=== PATIENT | male | born 1970 | race Caucasian/White ===

== ENCOUNTER 2018-02-08 22:35 | Inpatient (IN) | payer OTHER ==
[~2018-02-08] VITALS: Ht 188 cm; Wt 127.0 kg
[~2018-02-08 22:35] MED LIST: BUPR100CR PO; LOSA50TA PO; METF1000 PO; PROP80TA PO; ZIAG300T3 PO
[2018-02-08 23:12] VITALS: BP 140/83; PULSE 86; RESP 19; TEMP 98.7; O2SAT 97
[2018-02-08 23:35] VITALS: O2SAT 97
--- NOTE | 2018-02-08 23:56 | HHI.HP ---
HPI Service Critical Care Medicine Primary Care Physician Unknown Admission Diagnosis Diagnosis: Travel History International Travel<30 Days: No Contact w/Intl Traveler <30 Da: No Traveled to Known Affected Are: No History of Present Illness 47-year-old male with medical history of hypertension on RAJANI inhibitor and beta loraine, he started taking supplement Tumeric yesterday. He presents today complaining of having tongue swelling that started earlier today. Patient denies any urticaria, shortness of breath, wheezing. Patient is having difficulty speaking secondary to the size/volume of his tongue. Patient has no drooling. Patient has no history of significant allergic reactions similar to this, has no history of angioedema no family history of angioedema to his knowledge. Review of Systems Constitutional: DENIES: Diaphoretic episodes, Fatigue, Fever, Weight gain, Weight loss, Chills, Dizziness, Change in appetite, Night Sweats Endocrine: DENIES: Heat/cold intolerance, Polydipsia, Polyuria, Polyphagia Eyes: DENIES: Blurred vision, Diplopia, Eye inflammation, Eye pain, Vision loss , Photosensitivity, Double Vision Ears, nose, mouth, throat: DENIES: Tinnitus, Hearing loss, Vertigo, Nasal discharge, Oral lesions, Throat pain, Hoarseness, Ear Pain, Running Nose, Epistaxis, Sinus Pain, Toothache, Odynophagia Respiratory: DENIES: Apneas, Cough, Snoring, Wheezing, Hemoptysis, Sputum production, Shortness of breath Cardiovascular: DENIES: Chest pain, Palpitations, Syncope, Dyspnea on Exertion , PND, Lower Extremity Edema, Orthopnea, Claudication Gastrointestinal: DENIES: Abdominal pain, Black stools, Bloody stools, Constipation, Diarrhea, Nausea, Vomiting, Difficulty Swallowing, Anorexia Genitourinary: DENIES: Sexual dysfunction, Urinary frequency, Urinary incontinence, Urgency, Hematuria, Dysuria, Nocturia, Penile Discharge, Testicular Pain, Testicular Swelling Musculoskeletal: DENIES: Joint pain, Muscle aches, Stiffness, Joint Swelling, Back pain, Neck pain Integumentary: DENIES: Abnormal pigmentation, Nail changes, Pruritus, Rash Hematologic/lymphatic: DENIES: Bruising, Lymphadenopathy Immunologic/allergic: DENIES: Eczema, Urticaria Neurologic: DENIES: Abnormal gait, Headache, Localized weakness, Paresthesias, Seizures, Speech Problems, Tremor, Poor Balance Psychiatric: DENIES: Anxiety, Confusion, Mood changes, Depression, Hallucinations, Agitation, Suicidal Ideation, Homicidal Ideation, Delusions Past Family Social History Allergies: Coded Allergies: losartan (Verified Adverse Reaction, Severe, Swelling of tongue and face, 02/08/18) Uncoded Allergies: feldine (Allergy, Intermediate, 02/08/18) Past Medical History Diabetes mellitus Hypertension Depressions Past Surgical History No related significant past surgical history Reported Medications Reported Meds & Active Scripts Active Reported Metformin (Metformin HCl) 1,000 Mg Tab 1,000 Mg PO DAILY With a meal Ziagen (Abacavir Sulfate) 300 Mg Tab 300 Mg PO DAILY Hazardous agent; use appropriate precautions for handling & disposal. Wellbutrin SR 12 HR (Bupropion HCl) 100 Mg Tab 100 Mg PO Q12HR Propranolol (Propranolol HCl) 80 Mg Tab 80 Mg PO Q12HR Active Ordered Medications Current Medications Medications (Trade) Dose Ordered Sig/Azeb Route PRN Reason Start Time Stop Time Status Last Admin Dose Admin Abacavir Sulfate (Ziagen) 300 mg DAILY PO 02/09/18 09:00 Bupropion HCl (Wellbutrin Sr 12 Hr) 100 mg Q12HR PO 02/09/18 09:00 Propranolol HCl (Inderal) 80 mg Q12HR PO 02/09/18 09:00 Sodium Chloride 1,000 ml @ 84 mls/hr [id number] IV 02/09/18 00:00 02/09/18 00:42 Sodium Chloride (NS Flush) 2 ml UNSCH PRN IV FLUSH FLUSH AFTER USING IV ACCESS 02/09/18 00:00 Sodium Chloride (NS Flush) 2 ml BID IV FLUSH 02/09/18 09:00 Acetaminophen (Tylenol) 650 mg Q6H PRN PO PAIN 1-10 AND/OR FEVER >101F 02/09/18 00:00 Famotidine (Pepcid Inj) 20 mg Q12HR IV PUSH 02/09/18 09:00 Ondansetron HCl (Zofran Inj) 4 mg Q6H PRN IV PUSH NAUSEA OR VOMITING 02/09/18 00:00 Temazepam (Restoril) 15 mg HS PRN PO INSOMNIA 02/09/18 00:00 Albuterol/ Ipratropium (Duoneb Neb) 1 ampule Q2HR NEB PRN INH WHEEZING 02/09/18 00:00 Heparin Sodium (Porcine) (Heparin Inj) 5,000 units Q8H SQ 02/09/18 00:00 02/09/18 00:43 Miscellaneous Information 1 [id number] XX 02/09/18 00:00 Chlorhexidine Gluconate (Chlorhexidine 2% Cloth) 3 pack Taper DAILY@04 TOP 02/09/18 04:00 02/05/19 03:59 02/09/18 00:43 Chlorhexidine Gluconate (Chlorhexidine 2% Cloth) 3 pack UNSCH PRN TOP HYGIENIC CARE 02/09/18 00:00 Senna/Docusate Sodium (Gabi-Colace) 1 tab BID PO 02/09/18 09:00 Magnesium Hydroxide (Milk Of Magnesia Liq) 30 ml Q12H PRN PO Mild constipation 02/09/18 00:00 Sennosides (Senokot) 17.2 mg Q12H PRN PO Moderate constipation 02/09/18 00:00 Bisacodyl (Dulcolax Supp) 10 mg DAILY PRN RECTAL SEVERE CONSITIPATION/ IF NPO 02/09/18 00:00 Lactulose (Lactulose Liq) 30 ml DAILY PRN PO SEVERE CONSITIPATION/ IF PO 02/09/18 00:00 Diphenhydramine HCl (Benadryl Inj) 25 mg Q4H IM 02/09/18 00:15 02/09/18 00:43 Dexamethasone Sodium Phosphate (Decadron Inj) 8 mg DAILY IV PUSH 02/09/18 09:00 02/11/18 09:01 Dextrose (D50w (Vial) Inj) 50 ml UNSCH PRN IV PUSH HYPOGLYCEMIA-SEE COMMENTS 02/09/18 00:15 Glucagon (Glucagon Inj) 1 mg UNSCH PRN OTHER HYPOGLYCEMIA-SEE COMMENTS 02/09/18 00:15 Insulin Aspart (NovoLOG SUPPLEMENTAL SCALE) 1 ACHS SLIDING SCALE SQ 02/09/18 08:00 Family History No family history significant for coronary artery disease or malignancy Social History Denies tobacco, alcohol, or illicit drug abuse Physical Exam Vital Signs Vital Signs Date Time Temp Pulse Resp B/P (MAP) Pulse Ox O2 Delivery O2 Flow Rate FiO2 02/08/18 23:12 98.7 86 19 140/83 (102) 97 Physical Exam GENERAL: Well-nourished, well-developed patient. SKIN: Warm and dry. HEAD: Normocephalic. EYES: No scleral icterus. No injection or drainage. NECK: Supple, trachea midline. No JVD or lymphadenopathy. CARDIOVASCULAR: Regular rate and rhythm without murmurs, gallops, or rubs. RESPIRATORY: Breath sounds equal bilaterally. No accessory muscle use. GASTROINTESTINAL: Abdomen soft, non-tender, nondistended. MUSCULOSKELETAL: No cyanosis, or edema. BACK: Nontender without obvious deformity. NEURO EXAM: GCS: 15 Mental Status: The patient is alert and oriented to person, place, and time with normal speech. Cranial Nerves: Visual acuity intact bilaterally. Visual sharp normal in all quadrants. Pupils are round, reactive to light. Extraocular movements are intact without ptosis. Hearing is normal bilaterally. Voice is normal. Tongue protrudes midline and moves symmetrically. Reflexes: Biceps, patellar, and Achilles are 2/4 bilaterally. No clonus. Sensation: Sensation is intact bilaterally to pain and light touch. Two-point discrimination is intact. Motor: Good muscle tone. Strength is 5/5 bilaterally. Cerebellar: [id number]-[id number]-radd and nwsf-mw-dwon test normal bilaterally. Caprini VTE Risk Assessment Caprini VTE Risk Assessment: Mod/High Risk (score >= 2) Caprini Risk Assessment Model Point Value = 1 Point Value = 2 Point Value = 3 Point Value = 5 Age 41-60 Minor surgery BMI > 25 kg/m2 Swollen legs Varicose veins or History of unexplained or recurrent spontaneous Oral contraceptives or hormone replacement Sepsis (< 1 month) Serious lung disease, including pneumonia (< 1 month) Abnormal pulmonary function Acute myocardial infarction Congestive heart failure (< 1 month) History of inflammatory bowel disease Medical patient at bed rest Age 61-74 Arthroscopic surgery Major open surgery (> 45 min) Laparoscopic surgery (> 45 min) Malignancy Confined to bed (> 72 hours) Immobilizing plaster cast Central venous access Age >= 75 History of VTE Family history of VTE Factor V Leiden Prothrombin [id number] Lupus anticoagulant Anticardiolipin antibodies Elevated serum homocysteine Heparin-induced thrombocytopenia Other congenital or acquired thrombophilia Stroke (< 1 month) Elective arthroplasty Hip, pelvis, or leg fracture Acute spinal cord injury (< 1 month) Prophylaxis Regimen Total Risk Factor Score Risk Level Prophylaxis Regimen 0-1 Low Early ambulation 2 Moderate Order ONE of the following: *Sequential Compression Device (SCD) *Heparin 5000 units SQ BID 3-4 Higher Order ONE of the following medications: *Heparin 5000 units SQ TID *Enoxaparin/Lovenox 40 mg SQ daily (WT < 150 kg, CrCl > 30 mL/min) *Enoxaparin/Lovenox 30 mg SQ daily (WT < 150 kg, CrCl > 10-29 mL/min) *Enoxaparin/Lovenox 30 mg SQ BID (WT < 150 kg, CrCl > 30 mL/min) AND/OR *Sequential Compression Device (SCD) 5 or more Highest Order ONE of the following medications: *Heparin 5000 units SQ TID (Preferred with Epidurals) *Enoxaparin/Lovenox 40 mg SQ daily (WT < 150 kg, CrCl > 30 mL/min) *Enoxaparin/Lovenox 30 mg SQ daily (WT < 150 kg, CrCl > 10-29 mL/min) *Enoxaparin/Lovenox 30 mg SQ BID (WT < 150 kg, CrCl > 30 mL/min) AND *Sequential Compression Device (SCD) Assessment and Plan Assessment and Plan Angioedema - DC RAJANI inhibitor - IV steroids H1 H2 antagonist - Received FFP's in a delta on the ER - Symptoms improving Hypertension - Continue propranolol - Hydralazine when necessary to keep SBP less than 160 - DC RAJANI inhibitor Diabetes mellitus - Hold metformin while in the ICU - Insulin sliding scale Depression - Home dose of Wellbutrin DVT GI prophylaxis - Teds SCDs - Subcutaneous heparin - Early aggressive mobilization - Pepcid Critical Care: The total critical care time was 35 minutes. Time to perform other separately billable procedures was not included in the critical care time. Corbin Chowdhury MD Feb 08, 2018 11:56 pm
[2018-02-09] VITALS (14 sets, daily range): BP systolic 116–155; BP diastolic 67–93; PULSE 78–95; RESP 17–29; TEMP 97.7–98.7; O2SAT 92–98
[2018-02-09] MEDS ORDERED: SENNOSIDES 8.6 MG TAB PO PRN
[2018-02-09] MEDS ORDERED: SODIUM CHLOR 0.9% 1000 ML INJ 1,000 ML IV SCH
[2018-02-09] MEDS ORDERED: SODIUM CHLORIDE 0.9% FLUSH 10 ML FLUSH IV FLUSH PRN
[2018-02-09] MEDS ORDERED: LACTULOSE SYRUP 20 GM/30 ML CUP PO PRN
[2018-02-09] MEDS ORDERED: MAGNESIUM HYDROXIDE SUSP 30 ML CUP PO PRN
[2018-02-09] MEDS ORDERED: BISACODYL 10 MG SUPP RECTAL PRN
[2018-02-09] MEDS ORDERED: RESP: ALBUTEROL 2.5 MG/IPRATROPIUM 0.5 MG NEB (PRN) INH
[2018-02-09] MEDS ORDERED: TEMAZEPAM 15 MG CAP PO PRN
[2018-02-09] MEDS ORDERED: ACETAMINOPHEN 325 MG TAB PO PRN
[2018-02-09] MEDS ORDERED: ONDANSETRON HCL 4 MG/2 ML VIAL IV PUSH PRN
[2018-02-09] MEDS ORDERED: MISCELLANEOUS NURSING INFORMATION XX SCH
[2018-02-09] MEDS ORDERED: CHLORHEXIDINE GLUCONATE 2 % 1 PACK (2 CLOTHS) TOP PRN
[2018-02-09] MEDS ORDERED: GLUCAGON 1 MG/ML VIAL OTHER PRN (00:15)
[2018-02-09] MEDS ORDERED: DEXTROSE 50% IN WATER 50 ML VIAL(D50) IV PUSH PRN (00:15)
[2018-02-09] MEDS: diphenhydrAMINE HCL 50 MG/ML VIAL IM SCH ×5 (00:43→16:54)
[2018-02-09] MEDS: HEPARIN SODIUM - SQ 10,000 UNITS/ML VIAL SQ SCH ×2 (00:43→08:44)
[2018-02-09] MEDS ORDERED: CHLORHEXIDINE GLUCONATE 2 % 1 PACK (2 CLOTHS) TOP SCH (04:00)
[2018-02-09 05:38] LABS: HEMATOCRIT 40.4 % (39.0-51.0); HEMOGLOBIN 13.7 GM/DL (13.0-17.0); MEAN CELL VOLUME 85.5 FL (80.0-100.0); MEAN CORPUSCULAR HEMOGLOBIN 28.9 PG (27.0-34.0); MEAN CORPUSCULAR HGB CONC 33.8 % (32.0-36.0); MEAN PLATELET VOLUME 7.9 FL (7.0-11.0); PLATELET COUNT 297 TH/MM3 (150-450); RED BLOOD COUNT 4.72 MIL/MM3 (4.50-5.90); RED CELL DISTRIBUTION WIDTH 13.8 % (11.6-17.2); WHITE BLOOD COUNT 10.7 TH/MM3 (4.0-11.0)
[2018-02-09 06:07] LABS: ALBUMIN 3.7 GM/DL (3.4-5.0); AST (GOT) 45 U/L (15-37); BLOOD UREA NITROGEN 15 MG/DL (7-18); CALCIUM 9.2 MG/DL (8.5-10.1); CHLORIDE 103 MEQ/L (98-107); CREATININE 1.08 MG/DL (0.60-1.30); GLOMERULAR FILTRATION RATE 73 ML/MIN (>89); GLUCOSE,RANDOM 159 MG/DL (74-106); MAGNESIUM 1.8 MG/DL (1.5-2.5); SODIUM (NA) 138 MEQ/L (136-145)
[2018-02-09 06:12] LABS: ALKALINE PHOSPHATASE 48 U/L (45-117); ALT (GPT) 78 U/L (12-78); PHOSPHORUS 2.4 MG/DL (2.5-4.9); TOTAL BILIRUBIN ADULT 0.5 MG/DL (0.2-1.0); TOTAL PROTEIN 7.4 GM/DL (6.4-8.2)
[2018-02-09] MEDS: INSULIN ASPART SUPPLEMENTAL SCALE SQ SCH ×2 (08:00→12:07)
[2018-02-09] MEDS ORDERED: ABACAVIR SULFATE 300 MG TAB PO SCH (09:00)
[2018-02-09] MEDS ORDERED: DEXAMETHASONE SOD PHOS 4 MG/ML VIAL IV PUSH SCH (09:00)
[2018-02-09] MEDS ORDERED: FAMOTIDINE 20 MG/2 ML VIAL IV PUSH SCH (09:00)
[2018-02-09] MEDS ORDERED: SODIUM CHLORIDE 0.9% FLUSH 10 ML FLUSH IV FLUSH SCH (09:00)
[2018-02-09] MEDS ORDERED: buPROPion HCL 100 MG SUSTAINED RELEASE TAB PO SCH (09:00)
[2018-02-09] MEDS ORDERED: DOCUSATE SODIUM 50 MG/SENNA 8.6 MG TAB PO SCH (09:00)
[2018-02-09] MEDS ORDERED: PROPRANOLOL HCL 80 MG TAB PO SCH (09:00)
--- NOTE | 2018-02-09 09:36 | HHI.PR ---
Subjective Remarks Patient reports feeling much better, no longer has edema able to tolerate diet and manage secretions denies SOB Objective Vitals Vital Signs Date Time Temp Pulse Resp B/P (MAP) Pulse Ox O2 Delivery O2 Flow Rate FiO2 02/09/18 06:00 82 02/09/18 04:00 98.5 84 18 133/84 (100) 98 02/09/18 04:00 84 02/09/18 02:00 88 02/09/18 00:00 98.5 87 20 130/81 (97) 96 02/09/18 00:00 87 02/08/18 23:35 97 Nasal Cannula 2.00 02/08/18 23:12 98.7 86 19 140/83 (102) 97 Result Diagram: 02/09/18 0345 02/09/18 0345 Other Results Laboratory Tests Test 02/08/18 23:00 02/09/18 03:45 Nasal Screen MRSA (PCR) MRSA NOT DETECTED White Blood Count 10.7 TH/MM3 Red Blood Count 4.72 MIL/MM3 Hemoglobin 13.7 GM/DL Hematocrit 40.4 % Mean Corpuscular Volume 85.5 FL Mean Corpuscular Hemoglobin 28.9 PG Mean Corpuscular Hemoglobin Concent 33.8 % Red Cell Distribution Width 13.8 % Platelet Count 297 TH/MM3 Mean Platelet Volume 7.9 FL Blood Urea Nitrogen 15 MG/DL Creatinine 1.08 MG/DL Random Glucose 159 MG/DL Total Protein 7.4 GM/DL Albumin 3.7 GM/DL Calcium Level 9.2 MG/DL Phosphorus Level 2.4 MG/DL Magnesium Level 1.8 MG/DL Alkaline Phosphatase 48 U/L Aspartate Amino Transf (AST/SGOT) 45 U/L Alanine Aminotransferase (ALT/SGPT) 78 U/L Total Bilirubin 0.5 MG/DL Sodium Level 138 MEQ/L Potassium Level 3.9 MEQ/L Chloride Level 103 MEQ/L Carbon Dioxide Level 26.0 MEQ/L Anion Gap 9 MEQ/L Estimat Glomerular Filtration Rate 73 ML/MIN Objective Remarks GENERAL: This is an obese, well-developed patient, in no apparent distress. CARDIOVASCULAR: Regular rate and rhythm RESPIRATORY: Clear to auscultation. Breath sounds equal bilaterally. GASTROINTESTINAL: Abdomen soft, non-tender, nondistended. Normal active bowel sounds MUSCULOSKELETAL: Extremities without clubbing, cyanosis, or edema. NEURO: Alert & Oriented x4 to person, place, time, situation. Moves all ext x4 A/P Problem List: (1) Angio-edema ICD Codes: T78.3XXA - Angioneurotic edema, initial encounter Plan: Angioedema - DC RAJANI inhibitor - initially on IV steroids H1 H2 antagonist - edema resolved - continue to monitor patient till 5 pm if no evidence of edema plan to DC Hypertension - Continue propranolol - DC RAJANI inhibitor - start Norvasc 5 mg PO daily Diabetes mellitus - resume metformin - Insulin sliding scale Depression - continue home dose of Wellbutrin DVT GI prophylaxis - Teds SCDs - Subcutaneous heparin - Early aggressive mobilization - Pepcid Assessment and Plan Patient examined. Assessment and plan formulated with Chacha Nunes PA-C. I agree with the above. Chacha Nunes Feb 09, 2018 09:36 Trae Concepcion DO Feb 14, 2018 13:47
[2018-02-09] MEDS ORDERED: AMLO5 PO (10:03)
--- NOTE | 2018-02-09 10:14 | HHI.DS ---
Discharge Summary Admission Date Feb 08, 2018 at 22:45 Discharge Date: Feb 09, 2018 Admitting Diagnosis (1) Angio-edema ICD Codes: T78.3XXA - Angioneurotic edema, initial encounter Consultants Dr. Chwodhury, ICU Procedures none Brief History 47-year-old male with medical history of hypertension on RAJANI inhibitor and beta loraine, he started taking supplement Tumeric yesterday. He presents today complaining of having tongue swelling that started earlier today. Patient denies any urticaria, shortness of breath, wheezing. Patient is having difficulty speaking secondary to the size/volume of his tongue. Patient has no drooling. Patient has no history of significant allergic reactions similar to this, has no history of angioedema no family history of angioedema to his knowledge. CBC/BMP: 02/09/18 0345 02/09/18 0345 Significant Findings Laboratory Tests Test 02/08/18 23:00 02/09/18 03:45 Random Glucose 159 MG/DL (74-106) Phosphorus Level 2.4 MG/DL (2.5-4.9) Aspartate Amino Transf (AST/SGOT) 45 U/L (15-37) Estimat Glomerular Filtration Rate 73 ML/MIN (>89) PE at Discharge GENERAL: This is an obese, well-developed patient, in no apparent distress. CARDIOVASCULAR: Regular rate and rhythm RESPIRATORY: Clear to auscultation. Breath sounds equal bilaterally. GASTROINTESTINAL: Abdomen soft, non-tender, nondistended. Normal active bowel sounds MUSCULOSKELETAL: Extremities without clubbing, cyanosis, or edema. NEURO: Alert & Oriented x4 to person, place, time, situation. Moves all ext x4 Hospital Course Angioedema - DC RAJANI inhibitor - initially on IV steroids H1 H2 antagonist - edema resolved Hypertension - Continue propranolol - DC RAJANI inhibitor - start Norvasc 5 mg PO daily Diabetes mellitus - resume metformin - Insulin sliding scale Depression - continue home dose of Wellbutrin DVT GI prophylaxis - Teds SCDs - Subcutaneous heparin - Early aggressive mobilization - Pepcid Pt Condition on Discharge: Stable Discharge Disposition: Discharge Home Discharge Instructions DIET: Follow Instructions for: Heart Healthy Diet Activities you can perform: Regular-No Restrictions Follow up Referrals: PCP Follow-up - [address] Lopez New Medications: Amlodipine (Norvasc) 5 Mg Tab 5 MG PO DAILY for Blood Pressure Management, #30 TAB 0 Refills Continued Medications: Abacavir (Ziagen) 300 Mg Tab 300 MG PO DAILY for Mgmt Viral Infection, #30 TAB 0 Refills Hazardous agent; use appropriate precautions for handling & disposal. Bupropion HCl ER 12 HR (Wellbutrin SR 12 HR) 100 Mg Tab 100 MG PO Q12HR for Control Depression, TAB 0 Refills Metformin (Metformin) 1,000 Mg Tab 1000 MG PO DAILY for Blood Sugar Management, #30 TAB 0 Refills With a meal Propranolol (Propranolol) 80 Mg Tab 80 MG PO Q12HR, #60 TAB 0 Refills Additional Information Patient examined. Assessment and plan formulated with Chacha Nunes PA-C. I agree with the above. Chacha Nunes Feb 09, 2018 10:14 Trae Concepcion DO Feb 14, 2018 13:48
[2018-02-09] MEDS ORDERED: metFORMIN HCL 500 MG TAB PO SCH (10:15)
[2018-02-09] MEDS ORDERED: amLODIPine BESYLATE 5 MG TAB PO ONE (10:15)
[2018-02-10] MEDS ORDERED: amLODIPine BESYLATE 5 MG TAB PO SCH (09:00)
== END 2018-02-09 17:15 | disposition home or self-care (01) | DRG 916 ==
LOC: NEDDLT 22:35 → HIMW 22:45
PROVIDERS: ADMIT Internal Medicine Critical Care Medicine; ATTEND Internal Medicine Critical Care Medicine
DX: T78.3XXA Angioneurotic edema, initial encounter (principal); I10 Essential (primary) hypertension; E11.9 Type 2 diabetes mellitus without complications; F32.9 Major depressive disorder, single episode, unspecified; Z79.84 Long term (current) use of oral hypoglycemic drugs
CPT/HCPCS: 36430; 70450; 71045; 80048; 80053; 82550; 83735; 84100; 84484; 85007; 85027; 85610; 85730; 86927; 87641; 93005; 96372; 96374; 96375; 96376; J0171; J1100; J1200; J1644; J1815; J2270; J7030; J7050; P9017

== ENCOUNTER 2018-04-04 14:06 | Emergency (ER) | payer OTHER ==
[~2018-04-04] VITALS: Ht 188 cm; Wt 122.0 kg
[~2018-04-04 14:06] MED LIST changes: +AMLO5 PO; -LOSA50TA PO
[2018-04-04 14:09] VITALS: BP 174/95; TEMP 98.5
[2018-04-04 14:11] VITALS: BP 174/95; PULSE 70; RESP 20; TEMP 98.5
[2018-04-04] MEDS ORDERED: SODIUM CHLORIDE 0.9% FLUSH 10 ML FLUSH IV FLUSH PRN (14:15)
[2018-04-04] MEDS ORDERED: methylPREDNISolone SOD SUCC 125 MG/2 ML VIAL IM ONE (14:15)
[2018-04-04] MEDS ORDERED: FAMOTIDINE 20 MG/2 ML VIAL IV PUSH ONE (14:15)
--- NOTE | 2018-04-04 14:32 | PD ---
HPI Chief Complaint: Allergic/Adverse Reaction Time Seen by Provider: 14:12 Travel History International Travel<30 days: No Contact w/Intl Traveler<30days: No Traveled to known affect area: No History of Present Illness HPI 47-year-old male complains of tongue swelling. Patient states the symptoms started about an hour prior to arrival. Patient has history of recurrent allergic reaction. Patient was treated to the emergency room in the past. Patient was on lisinopril and that was stopped. Patient was put on losartan and that was stopped about a month ago. Patient on amlodipine and propranolol for hypertension. Patient also has history of diabetes, hyperlipidemia. Patient was seen by training mgr recently and had skin tests and blood test for allergies. Patient started having tongue swelling about an hour prior to arrival. Patient gave himself an EpiPen injection and Benadryl 2 tablets prior to arrival. Patient denies any chest pain or shortness of breath. Patient denies any new exposure. PFSH Past Medical History Arthritis: No Asthma: No Heart Rhythm Problems: No Cancer: No High Cholesterol: No Chemotherapy: No Chest Pain: No Congestive Heart Failure: No COPD: No Cerebrovascular Accident: No Diabetes: Yes (diagnosed a year ago) Patient Takes Glucophage: No Endocrine: No Gastrointestinal Disorders: Yes (colonoscopy at beginning of year, no problems) GERD: Yes Genitourinary: No Hiatal Hernia: No Hypertension: Yes Immune Disorder: No Kidney Stones: No Musculoskeletal: No Neurologic: No Psychiatric: No Reproductive: No Respiratory: No Migraines: Yes (last migraine 2 years ago) Radiation Therapy: No Renal Failure: No Seizures: No Sickle Cell Disease: No Sleep Apnea: No Thyroid Disease: No Ulcer: No Past Surgical History Abdominal Surgery: No AICD: No Arteriovenous Shunt: No Cardiac Surgery: No Ear Surgery: No Endocrine Surgery: No Eye Surgery: No Genitourinary Surgery: No Insulin Pump: No Joint Replacement: No Oral Surgery: Yes (wisdom teeth removal) Pacemaker: No Thoracic Surgery: No Other Surgery: Yes (carpel tunnel surgery on left hand) Social History Alcohol Use: No Tobacco Use: No Substance Use: No Allergies-Medications (Allergen,Severity, Reaction): Coded Allergies: losartan (Verified Adverse Reaction, Severe, Swelling of tongue and face, 02/08/18) Uncoded Allergies: feldine (Allergy, Intermediate, 02/08/18) Reported Meds & Prescriptions Reported Meds & Active Scripts Active Zantac (Ranitidine HCl) 300 Mg Tab 300 Mg PO DAILY Zyrtec (Cetirizine HCl) 10 Mg Capsule 1 Tab PO DAILY Prednisone 20 Mg Tab 20 Mg PO BID Norvasc (Amlodipine Besylate) 5 Mg Tab 5 Mg PO DAILY Reported Metformin (Metformin HCl) 1,000 Mg Tab 1,000 Mg PO DAILY With a meal Ziagen (Abacavir Sulfate) 300 Mg Tab 300 Mg PO DAILY Hazardous agent; use appropriate precautions for handling & disposal. Wellbutrin SR 12 HR (Bupropion HCl) 100 Mg Tab 100 Mg PO Q12HR Propranolol (Propranolol HCl) 80 Mg Tab 80 Mg PO Q12HR Review of Systems General / Constitutional: No: Fever Eyes: No: Visual changes HENT: No: Headaches Cardiovascular: No: Chest Pain or Discomfort Respiratory: No: Shortness of Breath Gastrointestinal: No: Abdominal Pain Genitourinary: No: Dysuria Musculoskeletal: No: Pain Skin: No Rash Neurologic: No: Weakness Psychiatric: No: Depression Endocrine: No: Polydipsia Hematologic/Lymphatic: No: Easy Bruising Physical Exam Narrative GENERAL: Well-nourished, well-developed patient. SKIN: Focused skin assessment warm/dry. HEAD: Normocephalic. EYES: No scleral icterus. No injection or drainage. Patient has marked edema of the sinus pressure in the right side of the tongue. No pharyngeal swelling noted. No stridor or wheezes. NECK: Supple, trachea midline. No JVD or lymphadenopathy. CARDIOVASCULAR: Regular rate and rhythm without murmurs, gallops, or rubs. RESPIRATORY: Breath sounds equal bilaterally. No accessory muscle use. GASTROINTESTINAL: Abdomen soft, non-tender, nondistended. MUSCULOSKELETAL: No cyanosis, or edema. BACK: Nontender without obvious deformity. No CVA tenderness. Neurologic exam normal. Data Data Last Documented VS Vital Signs Date Time Temp Pulse Resp B/P (MAP) Pulse Ox O2 Delivery O2 Flow Rate FiO2 04/04/18 14:13 100 Nasal Cannula 2.00 04/04/18 14:11 98.5 70 20 174/95 (121) Orders Orders Ecg Monitoring (04/04/18 14:12) Iv Access Insert/Monitor (04/04/18 14:12) Oximetry (04/04/18 14:12) Methylprednisolone So Succ Inj (Solumedr (04/04/18 14:15) Famotidine Inj (Pepcid Inj) (04/04/18 14:15) Sodium Chloride 0.9% Flush (Ns Flush) (04/04/18 14:15) Ed Discharge Order (04/04/18 16:08) [facility] Medical Decision Making Medical Screen Exam Complete: Yes Emergency Medical Condition: Yes Differential Diagnosis Differential diagnosis including angioedema, anaphylactic reaction. Narrative Course 47-year-old male with recurrent angioedema. Patient gave himself an EpiPen injection and Benadryl and mouth prior to arrival. Solu-Medrol 125 mg IV. Pepcid 20 mg IV. 1609 p.m. Reexamination patient is feeling better. Decrease in swelling of the tongue. Diagnosis Primary Impression: Angioedema Qualified Codes: T78.3XXA - Angioneurotic edema, initial encounter Patient Instructions: General Instructions Additional Instructions: Take medications as directed. Follow-up with personal physician and training mgr. Return if worse. Med/Other Pt SpecificInfo: Prescription(s) given Scripts Epinephrine Inj (Epipen 2-Kyle Inj) 0.3 Mg/0.3 Ml Pfpen 0.3 MG IM ONCE Y for ALLERGIC REACTION, #1 PACK 0 Refills Prov: Michael Canales MD 04/04/18 Ranitidine (Zantac) 300 Mg Tab 300 MG PO DAILY, #10 TAB 0 Refills Prov: Michael Canales MD 04/04/18 Cetirizine HCl (Zyrtec) 10 Mg Capsule 1 TAB PO DAILY, #10 Prov: Michael Canales MD 04/04/18 Prednisone (Prednisone) 20 Mg Tab 20 MG PO BID, #10 TAB 0 Refills Prov: Michael Canales MD 04/04/18 Disposition: 01 DISCHARGE HOME Condition: Stable Michael Canales MD April 04, 2018 14:32
[2018-04-04] MEDS ORDERED: ZANT300T PO (16:13)
[2018-04-04] MEDS ORDERED: CETI10CA3 PO (16:13)
[2018-04-04] MEDS ORDERED: PRED20 PO (16:13)
[2018-04-04] MEDS ORDERED: EPIP0.3I IM (16:24)
[2018-04-04 16:43] VITALS: BP 131/68
== END 2018-04-04 17:24 | disposition home or self-care (01) ==
LOC: NEPD 14:06
DX: T78.3XXA Angioneurotic edema, initial encounter (principal); E11.9 Type 2 diabetes mellitus without complications; I10 Essential (primary) hypertension; Z79.84 Long term (current) use of oral hypoglycemic drugs
CPT/HCPCS: 96372; 96374; 99284; J2930

== ENCOUNTER 2018-06-09 07:29 | Observation (INO) ==
[2018-06-09] MEDS ORDERED: Dextrose 50% in Water 50 ML Vial IV.PUSH PRN (17:47)
--- NOTE | 2018-06-09 17:50 | P.HPIM ---
History of Present Illness Service: Mr Oconnell is 47 yo with dm 2, htn, and now 4 episodes of angioedema since January of 2018., The first episode pt was given antihistamine,decadron, ffp, and observed in [place] ICU overnight then discharged. He was on both an rajani and bb at that time and it was felt the rajani was culprit. RAJANI was stopped. He had primarily tongue swelling. In March he presented to ED again and was treated and released. About a week ago pt says again in [place] the same tingling and swelling of the tongue and he was given a medrol dose pack in ED and sent home. The dosepack completed 2 days ago and this AM he awoke and shortly after noticed tongue tingling and swelling. Pt was given epi/steroids/h2 blockers and sent here for obsevation. Pt says he has been following with an Digital Measurement Advisor Dr Nicholas and testing and bloodwork has not revealed the etiology of these episodes. A c1 esterase was sent today from ED. Currently tongue tinglin and swelling improved and nearly resolved. PMH dm 2 htn angioedema carpal tunnel surgery sh no tob. rare etoh FH father had esophageal ca Primary Care Physician: Daryl Lopez MD - Diagnosis (1) Angioedema (2) Diabetes (3) HTN (hypertension) Review of Systems tongue tingling and swelling PMFSH - History History Provided By: Patient - Medical History Medical History: Medical History (Last Updated 06/09/18 @ 17:32 by Honey So RN) High cholesterol Angioedema Onset Date: ~06/01/18 Diabetes Hypertension - Surgical History Surgical History: Surgical History (Last Reviewed 06/09/18 @ 15:19 by Richar Malcolm MD) H/O carpal tunnel repair - Tobacco History Second Hand Smoke Exposure: No Smoking Status: Never smoker - Alcohol History How Often Do You Have a Drink Containing Alcohol: Never - Substance Use History Substance History: No History of Abuse - Travel History Recent Travel in the [place] Within the Last 8 Weeks: No Recent Travel Out of the Country Within the Last 8 Weeks: No Medications and Allergies Active Medications: Active Medications Amlodipine Besylate (Norvasc) 10 mg PO DAILY DAVIAN Dextrose (D50w Vial) 50 ml IV.PUSH UNSCH PRN PRN Reason: PER HYPOGLYCEMIA PROTOCOL Fenofibrate (Tricor) 145 mg PO DAILY DAVIAN Glucagon (Glucagon Inj) 1 mg OTHER PRN PRN PRN Reason: for Hypoglycemia Protocol Insulin Aspart (Novolog Insulin Correctional Sugar Inj) 0 unit SQ ACHS DAVIAN; Protocol Metformin HCl (Glucophage) 1,000 mg PO DAILY DAVIAN Methylprednisolone Sodium Succinate (Solumedrol Inj) 60 mg IV.PUSH Q6HR DAVIAN Allergies Allergy/AdvReac Type Severity Reaction Status Date / Time guaifenesin Allergy Itching Verified 06/01/18 20:04 losartan AdvReac Severe Swelling Verified 02/08/18 23:57 of tongue and face feldine Allergy Intermediate Itching Uncoded 06/01/18 20:04 Home Medications Medication Instructions Recorded Confirmed Type Norvasc 10 mg PO HS 06/01/18 06/09/18 History Wellbutrin SR 50 mg PO BID 06/01/18 06/09/18 History metformin 1,000 mg PO HS 06/01/18 06/09/18 History EpiPen IM PRN PRN 06/09/18 History fenofibrate 06/09/18 History Exam Vital signs: heart reg lung cta abd s/nt ext no edema no stridor no rash. Caprini VTE Risk Assessment Caprini VTE Risk Assessment: No/Low Risk (score <= 1) Caprini Risk Assessment Model: Point Value = 1 Point Value = 2 Point Value = 3 Point Value = 5 Age 41-60 Minor surgery BMI > 25 kg/m2 Swollen legs Varicose veins or History of unexplained or recurrent spontaneous Oral contraceptives or hormone replacement Sepsis (< 1 month) Serious lung disease, including pneumonia (< 1 month) Abnormal pulmonary function Acute myocardial infarction Congestive heart failure (< 1 month) History of inflammatory bowel disease Medical patient at bed rest Age 61-74 Arthroscopic surgery Major open surgery (> 45 min) Laparoscopic surgery (> 45 min) Malignancy Confined to bed (> 72 hours) Immobilizing plaster cast Central venous access Age >= 75 History of VTE Family history of VTE Factor V Leiden Prothrombin [id number] Lupus anticoagulant Anticardiolipin antibodies Elevated serum homocysteine Heparin-induced thrombocytopenia Other congenital or acquired thrombophilia Stroke (< 1 month) Elective arthroplasty Hip, pelvis, or leg fracture Acute spinal cord injury (< 1 month) Prophylaxis Regimen: Total Risk Factor Score Risk Level Prophylaxis Regimen 0-1 Low Early ambulation 2 Moderate Order ONE of the following: *Sequential Compression Device (SCD) *Heparin 5000 units SQ BID 3-4 Higher Order ONE of the following medications: *Heparin 5000 units SQ TID *Enoxaparin/Lovenox 40 mg SQ daily (WT < 150 kg, CrCl > 30 mL/min) *Enoxaparin/Lovenox 30 mg SQ daily (WT < 150 kg, CrCl > 10-29 mL/min) *Enoxaparin/Lovenox 30 mg SQ BID (WT < 150 kg, CrCl > 30 mL/min) AND/OR *Sequential Compression Device (SCD) 5 or more Highest Order ONE of the following medications: *Heparin 5000 units SQ TID (Preferred with Epidurals) *Enoxaparin/Lovenox 40 mg SQ daily (WT < 150 kg, CrCl > 30 mL/min) *Enoxaparin/Lovenox 30 mg SQ daily (WT < 150 kg, CrCl > 10-29 mL/min) *Enoxaparin/Lovenox 30 mg SQ BID (WT < 150 kg, CrCl > 30 mL/min) AND *Sequential Compression Device (SCD) Assessment and Plan - Assessment (1) Angioedema Code(s): T78.3XXA - Angioneurotic edema, initial encounter Status: Acute Plan: 1. angioedema. tongue tingling/swelling recurrent. This is 4rth presentation since January. Initially felt to be rajani inh related. Pt reports allergy testing with his Allergy doctor. a hereditary angioedema was questioned. f/u pending labwork. cont iv solumedrol, scheduled benadryl, prn nebs overnight. telemetry diabetic diet. oha. ssi. ambulate ad kelsey. dvt prophylaxis. If pt stable will probably dc tomorrow. resume home meds. (2) Diabetes Code(s): E11.9 - Type 2 diabetes mellitus without complications Status: Chronic (3) HTN (hypertension) Code(s): I10 - Essential (primary) hypertension Status: Chronic H&P: Quality - VTE Deep Vein Thrombosis/Pulmonary Embolism Present on Admission: No
[2018-06-09] MEDS: MethylPREDNISolone Sod Succinate Inj 125 MG/2 ML Vial IV.PUSH SCH (18:09)
[2018-06-09] MEDS: Insulin NovoLOG Aspart Correctional Sugar Inj SQ SCH (20:45)
[2018-06-09] MEDS: buPROPion 100 MG Tablet PO SCH (20:46)
[2018-06-10] MEDS: MethylPREDNISolone Sod Succinate Inj 125 MG/2 ML Vial IV.PUSH SCH ×3 (01:25→13:39)
[2018-06-10 08:17] LABS: Baso % (Auto) 0.1 % (0.0-2.0); Eos % (Auto) 0.1 % (0.0-4.0); Hematocrit 42.2 % (39.0-51.0); Hemoglobin 14.2 gm/dL (13.0-17.0); Lymph # (Auto) 1.4 th/mm3 (1.0-4.8); Lymph % (Auto) 9.2 % (9.0-44.0); Mean Corpuscular HGB Conc 33.7 % (32.0-36.0); Mean Corpuscular Hemoglobin 28.6 pg (27.0-34.0); Mean Corpuscular Volume 84.8 fL (80.0-100.0); Mean Platelet Volume 7.5 fL (7.0-11.0); Mono # (Auto) 0.3 th/mm3 (0.0-0.9); Mono % (Auto) 2.1 % (0.0-8.0); Neut # (Auto) 13.5 th/mm3 (1.8-7.7); Neut % (Auto) 88.5 % (16.0-70.0); Platelet Count 347 th/mm3 (150-450); Red Blood Count 4.98 mil/mm3 (4.50-5.90); Red Cell Distribution Width 14.4 % (11.6-17.2); White Blood Count 15.2 th/mm3 (4.0-11.0)
[2018-06-10 08:57] LABS: Calcium 9.4 mg/dL (8.5-10.1); Carbon Dioxide 25.1 meq/L (21.0-32.0)
[2018-06-10] MEDS ORDERED: amLODIPine 10 MG Tablet PO SCH (09:00)
[2018-06-10] MEDS ORDERED: Fenofibrate 145 MG Tablet PO SCH (09:00)
--- NOTE | 2018-06-10 09:13 | P.PNIM ---
Subjective Interval history: Pt is no longer having any tongue tingling or swelling He feels that his voice is somewhat hoarse Physical Exam Vital signs: Vital Signs 06/09/18 17:54 06/09/18 19:36 06/09/18 23:34 Temperature 98.1 F 98.1 F 98.7 F Pulse Rate 100 H 106 H 109 H Respiratory Rate 20 18 18 Blood Pressure 143/92 H 123/71 116/82 Pulse Oximetry 96 97 95 06/10/18 03:51 06/10/18 04:00 06/10/18 08:00 Temperature 97.6 F 98.0 F Pulse Rate 99 H 93 H 99 H Respiratory Rate 18 18 Blood Pressure 123/75 136/87 Pulse Oximetry 96 96 Intake & Output 06/09/18 06/10/18 06/10/18 18:59 06:59 18:59 Intake Total 1000 / 1000 Balance 1000 / 1000 Weight 120.6 kg Intake: Oral 1000 / 1000 Other: # Voids 1 Date of Last Bowel Movement 06/09/18 Weight On Admission 120.6 kg Narrative: General: NAD, AAOx3 Chest: CTA Cardiac: Regular Abd: +BS, soft ND/NT Ext: No edema Results - Labs CBC & Chem 7: 06/10/18 07:50 06/10/18 07:50 Laboratory Results - last 24 hr 06/09/18 06/10/18 06/10/18 20:30 07:50 07:50 WBC 15.2 H RBC 4.98 Hgb 14.2 Hct 42.2 MCV 84.8 MCH 28.6 MCHC 33.7 RDW 14.4 Plt Count 347 MPV 7.5 Neut % (Auto) 88.5 H Lymph % (Auto) 9.2 [place] % (Auto) 2.1 Eos % (Auto) 0.1 Baso % (Auto) 0.1 Neut # (Auto) 13.5 H Lymph # (Auto) 1.4 [place] # (Auto) 0.3 Eos # (Auto) 0.0 Baso # (Auto) 0.0 WBC Differential . Differential Comment Auto diff final Sodium 137 Potassium 4.0 Chloride 104 Carbon Dioxide 25.1 Anion Gap 8 BUN 16 Creatinine 0.98 Estimated GFR 81 L POC Glucose 218 H Random Glucose 159 H Calcium 9.4 06/10/18 08:40 WBC RBC Hgb Hct MCV MCH MCHC RDW Plt Count MPV Neut % (Auto) Lymph % (Auto) [place] % (Auto) Eos % (Auto) Baso % (Auto) Neut # (Auto) Lymph # (Auto) [place] # (Auto) Eos # (Auto) Baso # (Auto) WBC Differential Differential Comment Sodium Potassium Chloride Carbon Dioxide Anion Gap BUN Creatinine Estimated GFR POC Glucose 162 H Random Glucose Calcium Assessment and Plan - Assessment (1) Angioedema Code(s): T78.3XXA - Angioneurotic edema, initial encounter Status: Acute Plan: Angioedema with tongue tingling/swelling, recurrent - Pt is a 47 y/o male with HTN, GERD and Glucose intolerance, and recurrent angioedema - He presented to the ED in [place] on 06/09/18 with his 4th presentation of angioedema, with tongue swelling and tingling, since January. - After his initially presentation it was felt that the angioedema was related to his Karlos inhibitor at that time so it was stopped. But he has had several episodes since that time. - Pt reports that he is following with an paper sorter, Dr. Fonseca and is undergoing allergy testing with him. - Hereditary angioedema was questioned, C1 esterase inhibitor and Complement 4, is pending and will need to be followed up on by his paper sorter. - Patient voiced concerns about possibly Lupus causing some of these issues, we will check SUSHMA and anti-DS DNA, which will need to be followed up on by his PCP. - We will also check TSH as well. - Pt was treated with IV Solu-Medrol, scheduled Benadryl, and prn nebs overnight with clinical improvement. - No cardiac dysrhythmias noted on telemetry overnight. - Pt has returned to baseline and his tongue tingling and swelling has resolved. - We will plan for discharge to home this afternoon with a Prednisone taper, 20mg BID x 4 days --> 20mg once daily x 4 days --> 10 mg once daily x 4 days, then stop. - Pt reports that he has been unable to schedule a sleep study as an outpt as the facility he has tried to reach over in [place] has not returned his phone calls. We will provide the pt with the phone number for Dr. Kushal Fatima office to call to schedule sleep study appt. - Pt is stable for discharge to home today. - He is to followup with his Radio Despatcher, Dr. Horn, in 1-2 weeks, call for that appt. - He is to followup with his PCP at his previously scheduled appt or sooner should any problems arise. - Pt is also being given a hand written prescription for Prednisone which is to be used in an emergency situation should he have any symptoms after the printed prescription for the Prednisone taper is completed. The exam, history, and the medical decision-making described in the above note were completed with the assistance of the mid-level provider. I reviewed and agree with the findings presented. I attest that I had a [id number] encounter with the patient on the same day, and personally performed and documented my assessment and findings in the medical record. recurrent angioedema. resolved. ?etiology. ?hereditary. no obvious drug or food trigger at this pt. karlos stopped in 01/29. no nsaids. has been to paper sorter and no etiology found. limited AI panel pending. [id number] inh pending. tsh pending. prednisone taper. given emergency script for prednisone prn. pt will f/u Tuesday with his Radio Despatcher. (2) Diabetes Code(s): E11.9 - Type 2 diabetes mellitus without complications Status: Chronic (3) HTN (hypertension) Code(s): I10 - Essential (primary) hypertension Status: Chronic
[2018-06-10] MEDS: buPROPion 100 MG Tablet PO SCH (09:45)
[2018-06-10] MEDS: Insulin NovoLOG Aspart Correctional Sugar Inj SQ SCH ×2 (09:49→13:38)
[2018-06-10 10:34] LABS: Hemoglobin A1c 6.3 % (4.3-6.0)
--- NOTE | 2018-06-11 08:01 | ED ---
HPI Related Data Home Medications Medication Instructions Recorded Confirmed Norvasc 10 mg PO HS 06/01/18 06/09/18 Wellbutrin SR 150 mg PO BID 06/01/18 06/10/18 metformin 1,000 mg PO HS 06/01/18 06/09/18 EpiPen IM PRN PRN 06/09/18 pantoprazole [Protonix] 40 mg PO DAILY 06/09/18 06/10/18 fenofibrate nanocrystallized 145 mg PO DAILY 06/10/18 06/10/18 Previous Rx's Medication Instructions Recorded prednisone [Deltasone] 20 mg PO DIRECTED 13 Days #14 06/10/18 tab Allergies Allergy/AdvReac Type Severity Reaction Status Date / Time guaifenesin Allergy Itching Verified 06/01/18 20:04 losartan AdvReac Severe Swelling Verified 02/08/18 23:57 of tongue and face feldine Allergy Intermediate Itching Uncoded 06/01/18 20:04 [facility] Medical History Medical History Angioedema (Acute ~06/01/18) Diabetes (Acute) High cholesterol (Acute) Hypertension (Acute) Surgical History Surgical History H/O carpal tunnel repair (Acute) Social History Social History Substance History: No History of Abuse Second Hand Smoke Exposure: No Smoking Status: Never smoker How Often Do You Have a Drink Containing Alcohol: Never Recent Travel in [place] within the Last 8 Weeks: No Recent Out of Country Travel within the Last 8 Weeks: No Course Initial Documented Vital Signs Temperature 98.1 F 06/09/18 17:54 Pulse Rate 100 H 06/09/18 17:54 Respiratory Rate 20 06/09/18 17:54 Blood Pressure 143/92 H 06/09/18 17:54 Pulse Oximetry 96 06/09/18 17:54 Last Documented Vital Signs Temperature 98.0 F 06/10/18 08:00 Pulse Rate 88 06/10/18 08:00 Respiratory Rate 18 06/10/18 08:00 Blood Pressure 136/87 06/10/18 08:00 Pulse Oximetry 96 06/10/18 08:00 Medical Decision Making Lab Data Result diagrams: 06/10/18 07:50 06/10/18 07:50 Lab Results 06/09/18 06/10/18 06/10/18 Range/Units 20:30 07:30 07:50 WBC 15.2 H (4.0-11.0) th/mm3 RBC 4.98 (4.50-5.90) mil/mm3 Hgb 14.2 (13.0-17.0) gm/dL Hct 42.2 (39.0-51.0) % MCV 84.8 (80.0-100.0) fL MCH 28.6 (27.0-34.0) pg MCHC 33.7 (32.0-36.0) % RDW 14.4 (11.6-17.2) % Plt Count 347 (150-450) th/mm3 MPV 7.5 (7.0-11.0) fL Neut % (Auto) 88.5 H (16.0-70.0) % Lymph % (Auto) 9.2 (9.0-44.0) % [place] % (Auto) 2.1 (0.0-8.0) % Eos % (Auto) 0.1 (0.0-4.0) % Baso % (Auto) 0.1 (0.0-2.0) % Neut # (Auto) 13.5 H (1.8-7.7) th/mm3 Lymph # (Auto) 1.4 (1.0-4.8) th/mm3 [place] # (Auto) 0.3 (0.0-0.9) th/mm3 Eos # (Auto) 0.0 (0.0-0.4) th/mm3 Baso # (Auto) 0.0 (0.0-0.2) th/mm3 WBC Differential . Differential Comment Auto diff final Sodium (136-145) meq/L Potassium (3.5-5.1) meq/L Chloride (98-107) meq/L Carbon Dioxide (21.0-32.0) meq/L Anion Gap (5-15) meq/L BUN (7-18) mg/dL Creatinine (0.60-1.30) mg/dL Estimated GFR (>89) mL/min POC Glucose 218 H (68-110) mg/dl Random Glucose (74-106) mg/dL Hemoglobin A1c 6.3 H (4.3-6.0) % Calcium (8.5-10.1) mg/dL TSH (0.358-3.740) uIU/mL Complement C4 (10-40) mg/dL 06/10/18 06/10/18 06/10/18 Range/Units 07:50 07:50 07:50 WBC (4.0-11.0) th/mm3 RBC (4.50-5.90) mil/mm3 Hgb (13.0-17.0) gm/dL Hct (39.0-51.0) % MCV (80.0-100.0) fL MCH (27.0-34.0) pg MCHC (32.0-36.0) % RDW (11.6-17.2) % Plt Count (150-450) th/mm3 MPV (7.0-11.0) fL Neut % (Auto) (16.0-70.0) % Lymph % (Auto) (9.0-44.0) % [place] % (Auto) (0.0-8.0) % Eos % (Auto) (0.0-4.0) % Baso % (Auto) (0.0-2.0) % Neut # (Auto) (1.8-7.7) th/mm3 Lymph # (Auto) (1.0-4.8) th/mm3 [place] # (Auto) (0.0-0.9) th/mm3 Eos # (Auto) (0.0-0.4) th/mm3 Baso # (Auto) (0.0-0.2) th/mm3 WBC Differential Differential Comment Sodium 137 (136-145) meq/L Potassium 4.0 (3.5-5.1) meq/L Chloride 104 (98-107) meq/L Carbon Dioxide 25.1 (21.0-32.0) meq/L Anion Gap 8 (5-15) meq/L BUN 16 (7-18) mg/dL Creatinine 0.98 (0.60-1.30) mg/dL Estimated GFR 81 L (>89) mL/min POC Glucose (68-110) mg/dl Random Glucose 159 H (74-106) mg/dL Hemoglobin A1c (4.3-6.0) % Calcium 9.4 (8.5-10.1) mg/dL TSH 0.459 (0.358-3.740) uIU/mL Complement C4 34 (10-40) mg/dL 06/10/18 06/10/18 Range/Units 08:40 13:18 WBC (4.0-11.0) th/mm3 RBC (4.50-5.90) mil/mm3 Hgb (13.0-17.0) gm/dL Hct (39.0-51.0) % MCV (80.0-100.0) fL MCH (27.0-34.0) pg MCHC (32.0-36.0) % RDW (11.6-17.2) % Plt Count (150-450) th/mm3 MPV (7.0-11.0) fL Neut % (Auto) (16.0-70.0) % Lymph % (Auto) (9.0-44.0) % [place] % (Auto) (0.0-8.0) % Eos % (Auto) (0.0-4.0) % Baso % (Auto) (0.0-2.0) % Neut # (Auto) (1.8-7.7) th/mm3 Lymph # (Auto) (1.0-4.8) th/mm3 [place] # (Auto) (0.0-0.9) th/mm3 Eos # (Auto) (0.0-0.4) th/mm3 Baso # (Auto) (0.0-0.2) th/mm3 WBC Differential Differential Comment Sodium (136-145) meq/L Potassium (3.5-5.1) meq/L Chloride (98-107) meq/L Carbon Dioxide (21.0-32.0) meq/L Anion Gap (5-15) meq/L BUN (7-18) mg/dL Creatinine (0.60-1.30) mg/dL Estimated GFR (>89) mL/min POC Glucose 162 H 176 H (68-110) mg/dl Random Glucose (74-106) mg/dL Hemoglobin A1c (4.3-6.0) % Calcium (8.5-10.1) mg/dL TSH (0.358-3.740) uIU/mL Complement C4 (10-40) mg/dL Discharge Plan Discharge Condition Condition: Stable Discharge Order Discharge Orders: Discharge Order (Routine); Ordered 06/10/18 Ordered By: Renuka Sr Discharge Details Anticipated Discharge Date: 06/10/18 Discharge Comment: Followup with your manager dish, Dr. Fonseca, in 1-2 weeks, call for that appt Followup with Dr. Kushal Fatima for sleep study, call his office at Followup with your PCP at previously scheduled appt or sooner shoule any problems arise. The hand written prescription for the Prednisone is to be used in an emergency should you have any symptoms after the printed prescription for the Prednisone taper is completed. Physicians Team ED Provider: Richar Malcolm Primary Care Provider: Daryl Lopez Attending Provider: Austin Mccormack Status ED Status: Admitted Observation Patient
[2018-06-13 16:27] LABS: DNA Double Stranded Antibody Less Than 12.3 IU/mL (<30.0 (Negative))
[2018-06-15 03:51] LABS: DS DNA Ab (Crithidia) NEGATIVE (NEGATIVE)
== END 2018-06-10 16:13 | disposition home or self-care (01) ==
LOC: NEPHCDU 07:29 → NEDDLT 07:29
PROVIDERS: ADMIT Hospitalist; ATTEND Hospitalist

== ENCOUNTER 2018-08-18 13:38 | Observation (INO) ==
[2018-08-18] MEDS ORDERED: predniSONE 20 MG Tablet PO ONE (13:44)
--- NOTE | 2018-08-18 14:38 | ED ---
HPI General Chief complaint: Allergic Reaction Stated complaint: MEDICAL Time Seen by Provider: 08/18/18 13:40 History of Present Illness HPI narrative: Patient is 47-year-old male with a history of reactive angioedema presents emergency department for evaluation of mild tongue swelling on the right side of his tongue for the past hour or so. He told a coworker about it who recommended he come to the emergency department to be seen. 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 He has been given Benadryl epinephrine and steroids in the past with good response. However the patient states that when he does give epinephrine it actually causes his heart to go slower and he was told that he should have epinephrine anymore. No cough no congestion, no difficulty swallowing, no rash. Related Data Home Medications Medication Instructions Recorded Confirmed Norvasc 5 mg PO DAILY 06/01/18 08/18/18 metformin 1,000 mg PO HS 06/01/18 08/18/18 cholecalciferol (vitamin D3) 1,000 unit PO DAILY 08/18/18 08/18/18 [Vitamin D3] fexofenadine [Kecia Allergy] 180 mg PO DAILY 08/18/18 08/18/18 sertraline [Zoloft] 25 mg PO DAILY 08/18/18 08/18/18 Previous Rx's Medication Instructions Recorded prednisone 10 mg PO DIRECTED 10 Days #10 08/19/18 tab Allergies Allergy/AdvReac Type Severity Reaction Status Date / Time guaifenesin Allergy Itching Verified 08/18/18 14:03 lisinopril Allergy Anaphylaxis Verified 08/18/18 14:03 losartan AdvReac Severe Swelling Verified 08/18/18 14:03 of tongue and face feldine Allergy Intermediate Itching Uncoded 08/18/18 14:03 Review of Systems ROS: all other systems reviewed are negative [facility] Social History Social History Substance History: No History of Abuse Second Hand Smoke Exposure: No Smoking Status: Never smoker How Often Do You Have a Drink Containing Alcohol: Monthly or less Recent Travel in [facility] within the Last 8 Weeks: No Recent Out of Country Travel within the Last 8 Weeks: No Immunization History Tetanus Immunization: <5 Years Exam Narrative Exam Narrative: GENERAL: Well-developed well-nourished no obvious distress. SKIN: Focused skin assessment warm/dry. No rash seen. HEAD: Atraumatic. Normocephalic. EYES: Pupils equal and round. No scleral icterus. No injection or drainage. ENT: No nasal bleeding or discharge. Mucous membranes pink and moist. Really there is only minimal tongue swelling to the right side of the tongue and the anterior portion. Airway is widely patent, no soft palate swelling, no posterior tongue swelling. NECK: Trachea midline. No JVD. CARDIOVASCULAR: Regular rate and rhythm. No murmur appreciated. RESPIRATORY: No accessory muscle use. Clear to auscultation. Breath sounds equal bilaterally. GASTROINTESTINAL: Abdomen soft, non-tender, nondistended. Hepatic and splenic margins not palpable. MUSCULOSKELETAL: No obvious deformities. No clubbing. No cyanosis. No edema. NEUROLOGICAL: Awake and alert. No obvious cranial nerve deficits. Motor grossly within normal limits. Normal speech. PSYCHIATRIC: Appropriate mood and affect; insight and judgment normal. Course Consultations Consultation #1: Dr. Holman came through the department to help Dr. Mccormack with admissions. He is admitting the patient to Dr. Mccormack's service. Time: 17:46 Initial Documented Vital Signs Pulse Rate 79 08/18/18 13:59 Respiratory Rate 16 08/18/18 13:59 Blood Pressure 163/94 H 08/18/18 13:59 Pulse Oximetry 96 08/18/18 13:59 Last Documented Vital Signs Temperature 98 F 08/19/18 10:53 Pulse Rate 82 08/19/18 10:53 Respiratory Rate 18 08/19/18 10:53 Blood Pressure 155/82 H 08/19/18 10:53 Pulse Oximetry 100 08/19/18 10:53 Sign Out Sign Out Data: Patient Sign Out occurred on 08/18/18 at 17:04. Patient's care was discussed, and care was transferred from Brian Gupta MD to Vernell Anderson. Sign Out Comment: Reassess after racemic epinephrine treatment, probable disposition is [facility] into the [facility]/ICU. Last updated by Brian Gupta MD at 08/18/18 16:45 Post-Handoff Eval: Care was assumed at 7 PM pending laboratory evaluation. The patient will probably be admitted to the intensive care unit for observation of angioedema he has required previous ICU admissions because of angioedema. The patient reports that his tongue does feel better. He is not having any problems breathing or handling his secretions. Medical Decision Making MDM Narrative Medical decision making narrative: Patient room the emergency department, only with minimal swelling of the right distal tongue the patient is having some increasing swelling despite Benadryl and steroids here in the emergency department, on further history the patient states he has had to be admitted to the ICU for this before, never intubated, he is even received plasma in the past. If tried racemic epinephrine treatment, he would still like to hold off on epinephrine injection. I think that he will probably require admission to the hospital. Medical Screen Exam Complete: Yes Emergency Medical Condition: Yes Lab Data Lab results reviewed: Yes I reviewed the patient's lab results. Result diagrams: 08/19/18 07:16 08/19/18 07:16 Lab Results 08/18/18 08/18/18 08/18/18 Range/Units 16:45 16:45 19:48 WBC 12.9 H (4.0-11.0) th/mm3 RBC 4.94 (4.50-5.90) mil/mm3 Hgb 14.0 (13.0-17.0) gm/dL Hct 43.2 (39.0-51.0) % MCV 87.4 (80.0-100.0) fL MCH 28.4 (27.0-34.0) pg MCHC 32.5 (32.0-36.0) % RDW 14.2 (11.6-17.2) % Plt Count 292 (150-450) th/mm3 MPV 7.9 (7.0-11.0) fL Neut % (Auto) 61.9 (16.0-70.0) % Lymph % (Auto) 27.6 (9.0-44.0) % Hickman % (Auto) 7.1 (0.0-8.0) % Eos % (Auto) 2.7 (0.0-4.0) % Baso % (Auto) 0.7 (0.0-2.0) % Neut # (Auto) 8.0 H (1.8-7.7) th/mm3 Lymph # (Auto) 3.5 (1.0-4.8) th/mm3 Hickman # (Auto) 0.9 (0.0-0.9) th/mm3 Eos # (Auto) 0.3 (0.0-0.4) th/mm3 Baso # (Auto) 0.1 (0.0-0.2) th/mm3 WBC Differential . Differential Comment Auto diff final Sodium 138 (136-145) meq/L Potassium 3.9 (3.5-5.1) meq/L Chloride 101 (98-107) meq/L Carbon Dioxide 27.5 (21.0-32.0) meq/L Anion Gap 10 (5-15) meq/L BUN 17 (7-18) mg/dL Creatinine 0.70 (0.60-1.30) mg/dL Estimated GFR Greater than 89 (>89) mL/min POC Glucose 154 H (68-110) mg/dl Random Glucose 70 L (74-106) mg/dL Calcium 9.3 (8.5-10.1) mg/dL 08/18/18 08/19/18 08/19/18 Range/Units 23:36 05:07 07:16 WBC 14.3 H (4.0-11.0) th/mm3 RBC 4.90 (4.50-5.90) mil/mm3 Hgb 13.9 (13.0-17.0) gm/dL Hct 41.8 (39.0-51.0) % MCV 85.2 (80.0-100.0) fL MCH 28.3 (27.0-34.0) pg MCHC 33.2 (32.0-36.0) % RDW 14.1 (11.6-17.2) % Plt Count 304 (150-450) th/mm3 MPV 7.4 (7.0-11.0) fL Neut % (Auto) 72.4 H (16.0-70.0) % Lymph % (Auto) 20.6 (9.0-44.0) % Hickman % (Auto) 5.9 (0.0-8.0) % Eos % (Auto) 0.7 (0.0-4.0) % Baso % (Auto) 0.4 (0.0-2.0) % Neut # (Auto) 10.4 H (1.8-7.7) th/mm3 Lymph # (Auto) 3.0 (1.0-4.8) th/mm3 Hickman # (Auto) 0.8 (0.0-0.9) th/mm3 Eos # (Auto) 0.1 (0.0-0.4) th/mm3 Baso # (Auto) 0.1 (0.0-0.2) th/mm3 WBC Differential . Differential Comment Auto diff final Sodium (136-145) meq/L Potassium (3.5-5.1) meq/L Chloride (98-107) meq/L Carbon Dioxide (21.0-32.0) meq/L Anion Gap (5-15) meq/L BUN (7-18) mg/dL Creatinine (0.60-1.30) mg/dL Estimated GFR (>89) mL/min POC Glucose 236 H 88 (68-110) mg/dl Random Glucose (74-106) mg/dL Calcium (8.5-10.1) mg/dL 08/19/18 08/19/18 Range/Units 07:16 08:19 WBC (4.0-11.0) th/mm3 RBC (4.50-5.90) mil/mm3 Hgb (13.0-17.0) gm/dL Hct (39.0-51.0) % MCV (80.0-100.0) fL MCH (27.0-34.0) pg MCHC (32.0-36.0) % RDW (11.6-17.2) % Plt Count (150-450) th/mm3 MPV (7.0-11.0) fL Neut % (Auto) (16.0-70.0) % Lymph % (Auto) (9.0-44.0) % Hickman % (Auto) (0.0-8.0) % Eos % (Auto) (0.0-4.0) % Baso % (Auto) (0.0-2.0) % Neut # (Auto) (1.8-7.7) th/mm3 Lymph # (Auto) (1.0-4.8) th/mm3 Hickman # (Auto) (0.0-0.9) th/mm3 Eos # (Auto) (0.0-0.4) th/mm3 Baso # (Auto) (0.0-0.2) th/mm3 WBC Differential Differential Comment Sodium 141 (136-145) meq/L Potassium 4.0 (3.5-5.1) meq/L Chloride 102 (98-107) meq/L Carbon Dioxide 28.8 (21.0-32.0) meq/L Anion Gap 10 (5-15) meq/L BUN 15 (7-18) mg/dL Creatinine 0.77 (0.60-1.30) mg/dL Estimated GFR Greater than 89 (>89) mL/min POC Glucose 84 (68-110) mg/dl Random Glucose 85 (74-106) mg/dL Calcium 9.4 (8.5-10.1) mg/dL Discharge Plan Discharge Disposition Patient Disposition: 30 Still Patient Discharge Condition Condition: Stable Discharge Order Discharge Orders: Discharge Order (Routine); Ordered 08/19/18 Ordered By: Austin Mccormack Discharge Details Anticipated Discharge Date: 08/19/18 Diagnosis: Angioedema Physicians Team ED Provider: Vernell Anderson Primary Care Provider: UNKNOWN, Attending Provider: Austin Mccormack Status ED Status: Left Department Discharge Information Discharge Date/Time: 08/18/18 19:03
[2018-08-18] MEDS ORDERED: RESP: Racemic Epinephrine 2.25% 0.5 ML Neb NEB ONE (16:12)
[2018-08-18 17:04] LABS: Baso # (Auto) 0.1 th/mm3 (0.0-0.2); Baso % (Auto) 0.7 % (0.0-2.0); Eos # (Auto) 0.3 th/mm3 (0.0-0.4); Eos % (Auto) 2.7 % (0.0-4.0); Hematocrit 43.2 % (39.0-51.0); Lymph # (Auto) 3.5 th/mm3 (1.0-4.8); Lymph % (Auto) 27.6 % (9.0-44.0); Mean Corpuscular HGB Conc 32.5 % (32.0-36.0); Mean Corpuscular Hemoglobin 28.4 pg (27.0-34.0); Mean Corpuscular Volume 87.4 fL (80.0-100.0); Mean Platelet Volume 7.9 fL (7.0-11.0); Mono # (Auto) 0.9 th/mm3 (0.0-0.9); Mono % (Auto) 7.1 % (0.0-8.0); Neut % (Auto) 61.9 % (16.0-70.0); Platelet Count 292 th/mm3 (150-450); Red Blood Count 4.94 mil/mm3 (4.50-5.90); Red Cell Distribution Width 14.2 % (11.6-17.2); White Blood Count 12.9 th/mm3 (4.0-11.0)
[2018-08-18 17:33] LABS: Anion Gap 10 meq/L (5-15); Blood Urea Nitrogen 17 mg/dL (7-18); Calcium 9.3 mg/dL (8.5-10.1); Carbon Dioxide 27.5 meq/L (21.0-32.0); Chloride 101 meq/L (98-107); Glomerular Filtration Rate Greater Than 89 mL/min (>89); Glucose,Random 70 mg/dL (74-106); Potassium 3.9 meq/L (3.5-5.1); Sodium 138 meq/L (136-145)
[2018-08-18] MEDS ORDERED: Bisacodyl 10 MG Supp RECTAL PRN (18:34)
--- NOTE | 2018-08-18 18:42 | P.HP ---
History of Present Illness Service: CP hospitalist Primary Care Physician: UNKNOWN Chief Complaint: swelling tongue History of Present Illness: HPI narrative: Patient is 47-year-old male with a history of reactive angioedema presents emergency department for evaluation of mild tongue swelling on the right side of his tongue for the past hour or so. He told a coworker about it who recommended he come to the emergency department to be seen. 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 He has been given Benadryl epinephrine and steroids in the past with good response. However the patient states that when he does give epinephrine it actually causes his heart to go slower and he was told that he should have epinephrine anymore. No cough no congestion, no difficulty swallowing, no rash no SOB . Patient given benadryl and prednisone in er. Admit to observation. - Diagnosis (1) Angioedema (2) Diabetes (3) HTN (hypertension) Review of Systems All other systems reviewed negative except as stated in HPI PMFSH - History History Provided By: Patient - Medical History Medical History: Medical History (Last Reviewed 08/18/18 @ 18:38 by Jarrod Leigh MD) High cholesterol (Acute) Angioedema (Acute) Onset Date: ~06/01/18 Diabetes (Acute) Hypertension (Acute) - Surgical History Surgical History: Surgical History (Last Reviewed 08/18/18 @ 18:38 by Jarrod Leigh MD) H/O carpal tunnel repair (Acute) - Tobacco History Second Hand Smoke Exposure: No Smoking Status: Never smoker - Alcohol History How Often Do You Have a Drink Containing Alcohol: Monthly or less - Substance Use History Substance History: No History of Abuse - Travel History Recent Travel in the [place] Within the Last 8 Weeks: No Recent Travel Out of the Country Within the Last 8 Weeks: No - Immunization History Tetanus Immunization: <5 Years Medications and Allergies Active Medications: Active Medications Hydroxyzine HCl (Vistaril Inj) 25 mg IM Q6H PRN PRN Reason: ALLERGIC REACTION Non-Formulary Medication (Cholecalciferol (Vitamin D3) [Vitamin D3]) 1,000 unit PO DAILY DAVIAN Non-Formulary Medication (Fexofenadine [Kecia Allergy]) 180 mg PO DAILY DAVIAN Non-Formulary Medication (Metformin) 1,000 mg PO HS DAVIAN Non-Formulary Medication (Norvasc) 5 mg PO DAILY DAVIAN Non-Formulary Medication (Sertraline [Zoloft]) 25 mg PO DAILY DAVIAN Sodium Chloride (Ns Flush) 2 ml IV.FLUSH PRN PRN PRN Reason: FLUSH AFTER USING IV ACCESS Allergies Allergy/AdvReac Type Severity Reaction Status Date / Time guaifenesin Allergy Itching Verified 08/18/18 14:03 lisinopril Allergy Anaphylaxis Verified 08/18/18 14:03 losartan AdvReac Severe Swelling Verified 08/18/18 14:03 of tongue and face feldine Allergy Intermediate Itching Uncoded 08/18/18 14:03 Home Medications Medication Instructions Recorded Confirmed Type Norvasc 5 mg PO DAILY 06/01/18 08/18/18 History metformin 1,000 mg PO HS 06/01/18 08/18/18 History cholecalciferol (vitamin D3) 1,000 unit PO DAILY 08/18/18 08/18/18 History [Vitamin D3] fexofenadine [Kecia Allergy] 180 mg PO DAILY 08/18/18 08/18/18 History sertraline [Zoloft] 25 mg PO DAILY 08/18/18 08/18/18 History Exam Vital signs: Vital Signs 08/18/18 13:59 08/18/18 16:42 08/18/18 18:18 Pulse Rate 79 79 70 Respiratory Rate 16 16 16 Blood Pressure 163/94 H 123/73 Pulse Oximetry 96 97 Intake & Output 08/17/18 08/18/18 08/18/18 18:59 06:59 18:59 Weight 117.027 kg Narrative: GENERAL: SKIN: Warm and dry. HEAD: Normocephalic. minimal tongue swelling rt side tongue and anterior no soft tissue swelling no posterior swelling EYES: No scleral icterus. No injection or drainage. NECK: Supple, trachea midline. No JVD or lymphadenopathy. CARDIOVASCULAR: Regular rate and rhythm without murmurs, gallops, or rubs. RESPIRATORY: Breath sounds equal bilaterally. No accessory muscle use. GASTROINTESTINAL: Abdomen soft, non-tender, nondistended. MUSCULOSKELETAL: No cyanosis, or edema. BACK: Nontender without obvious deformity. No CVA tenderness. Results - Labs CBC & Chem 7: 08/18/18 16:45 08/18/18 16:45 Labs: Laboratory Results - last 24 hr 08/18/18 08/18/18 16:45 16:45 WBC 12.9 H RBC 4.94 Hgb 14.0 Hct 43.2 MCV 87.4 MCH 28.4 MCHC 32.5 RDW 14.2 Plt Count 292 MPV 7.9 Neut % (Auto) 61.9 Lymph % (Auto) 27.6 Foster % (Auto) 7.1 Eos % (Auto) 2.7 Baso % (Auto) 0.7 Neut # (Auto) 8.0 H Lymph # (Auto) 3.5 Foster # (Auto) 0.9 Eos # (Auto) 0.3 Baso # (Auto) 0.1 WBC Differential . Differential Comment Auto diff final Sodium 138 Potassium 3.9 Chloride 101 Carbon Dioxide 27.5 Anion Gap 10 BUN 17 Creatinine 0.70 Estimated GFR Greater than 89 Random Glucose 70 L Calcium 9.3 Caprini VTE Risk Assessment Caprini VTE Risk Assessment: No/Low Risk (score <= 1) Caprini Risk Assessment Model: Point Value = 1 Point Value = 2 Point Value = 3 Point Value = 5 Age 41-60 Minor surgery BMI > 25 kg/m2 Swollen legs Varicose veins or History of unexplained or recurrent spontaneous Oral contraceptives or hormone replacement Sepsis (< 1 month) Serious lung disease, including pneumonia (< 1 month) Abnormal pulmonary function Acute myocardial infarction Congestive heart failure (< 1 month) History of inflammatory bowel disease Medical patient at bed rest Age 61-74 Arthroscopic surgery Major open surgery (> 45 min) Laparoscopic surgery (> 45 min) Malignancy Confined to bed (> 72 hours) Immobilizing plaster cast Central venous access Age >= 75 History of VTE Family history of VTE Factor V Leiden Prothrombin [id number] Lupus anticoagulant Anticardiolipin antibodies Elevated serum homocysteine Heparin-induced thrombocytopenia Other congenital or acquired thrombophilia Stroke (< 1 month) Elective arthroplasty Hip, pelvis, or leg fracture Acute spinal cord injury (< 1 month) Prophylaxis Regimen: Total Risk Factor Score Risk Level Prophylaxis Regimen 0-1 Low Early ambulation 2 Moderate Order ONE of the following: *Sequential Compression Device (SCD) *Heparin 5000 units SQ BID 3-4 Higher Order ONE of the following medications: *Heparin 5000 units SQ TID *Enoxaparin/Lovenox 40 mg SQ daily (WT < 150 kg, CrCl > 30 mL/min) *Enoxaparin/Lovenox 30 mg SQ daily (WT < 150 kg, CrCl > 10-29 mL/min) *Enoxaparin/Lovenox 30 mg SQ BID (WT < 150 kg, CrCl > 30 mL/min) AND/OR *Sequential Compression Device (SCD) 5 or more Highest Order ONE of the following medications: *Heparin 5000 units SQ TID (Preferred with Epidurals) *Enoxaparin/Lovenox 40 mg SQ daily (WT < 150 kg, CrCl > 30 mL/min) *Enoxaparin/Lovenox 30 mg SQ daily (WT < 150 kg, CrCl > 10-29 mL/min) *Enoxaparin/Lovenox 30 mg SQ BID (WT < 150 kg, CrCl > 30 mL/min) AND *Sequential Compression Device (SCD) Assessment and Plan - Assessment (1) Angioedema Code(s): T78.3XXA - Angioneurotic edema, initial encounter Status: Acute Plan: mild angioedema at this time admit to observation will use vistaril prn and if necessary IV solumedrol (2) Diabetes Code(s): E11.9 - Type 2 diabetes mellitus without complications Status: Chronic Plan: patient did receive steroids will follow accucheck and coverage (3) HTN (hypertension) Code(s): I10 - Essential (primary) hypertension Status: Chronic Plan: continue norvasc 5mg prn clonidine - Plan further plan as case develops Code Status: full Discussed Condition With: patient (1) Angioedema Qualifiers: Encounter type: initial encounter Qualified Code(s): T78.3XXA - Angioneurotic edema, initial encounter
[2018-08-18] MEDS ORDERED: Dextrose 50% in Water 50 ML Vial IV.PUSH PRN (18:43)
[2018-08-18] MEDS: Senna/Docusate Sodium 8.6/50 MG Tablet PO SCH (20:56)
[2018-08-18] MEDS ORDERED: Temazepam 15 MG Capsule PO PRN (21:00)
[2018-08-18] MEDS: Insulin NovoLOG Aspart Correctional Sugar Inj SQ SCH (23:41)
[2018-08-19] MEDS: Insulin NovoLOG Aspart Correctional Sugar Inj SQ SCH ×2 (01:16→10:45)
[2018-08-19 05:09] VITALS: RESP 18
[2018-08-19 07:59] LABS: Baso # (Auto) 0.1 th/mm3 (0.0-0.2); Baso % (Auto) 0.4 % (0.0-2.0); Eos # (Auto) 0.1 th/mm3 (0.0-0.4); Eos % (Auto) 0.7 % (0.0-4.0); Hematocrit 41.8 % (39.0-51.0); Hemoglobin 13.9 gm/dL (13.0-17.0); Lymph % (Auto) 20.6 % (9.0-44.0); Mean Corpuscular HGB Conc 33.2 % (32.0-36.0); Mean Corpuscular Hemoglobin 28.3 pg (27.0-34.0); Mean Corpuscular Volume 85.2 fL (80.0-100.0); Mean Platelet Volume 7.4 fL (7.0-11.0); Mono # (Auto) 0.8 th/mm3 (0.0-0.9); Mono % (Auto) 5.9 % (0.0-8.0); Neut # (Auto) 10.4 th/mm3 (1.8-7.7); Neut % (Auto) 72.4 % (16.0-70.0); Platelet Count 304 th/mm3 (150-450); Red Cell Distribution Width 14.1 % (11.6-17.2); White Blood Count 14.3 th/mm3 (4.0-11.0)
[2018-08-19 08:25] LABS: Anion Gap 10 meq/L (5-15); Blood Urea Nitrogen 15 mg/dL (7-18); Calcium 9.4 mg/dL (8.5-10.1); Carbon Dioxide 28.8 meq/L (21.0-32.0); Chloride 102 meq/L (98-107); Glomerular Filtration Rate Greater Than 89 mL/min (>89); Glucose,Random 85 mg/dL (74-106); Sodium 141 meq/L (136-145)
[2018-08-19] MEDS ORDERED: amLODIPine 5 MG Tablet PO SCH (09:00)
[2018-08-19] MEDS ORDERED: Sertraline 50 MG Tablet PO SCH (09:00)
[2018-08-19] MEDS ORDERED: Loratadine 10 MG Tablet PO SCH (09:00)
--- NOTE | 2018-08-19 09:58 | P.PNIM ---
Subjective Interval history: pt tongue swelling resolved. wants to go home. Physical Exam Vital signs: Vital Signs 08/18/18 13:59 08/18/18 16:42 08/18/18 18:18 Temperature Pulse Rate 79 79 70 Respiratory Rate 16 16 16 Blood Pressure 163/94 H 123/73 Pulse Oximetry 96 97 08/18/18 19:00 08/18/18 20:00 08/18/18 21:00 Temperature 98.2 F Pulse Rate 78 74 80 Respiratory Rate 18 Blood Pressure 155/81 H Pulse Oximetry 93 L 08/18/18 22:00 08/18/18 23:00 08/19/18 00:00 Temperature 98.7 F Pulse Rate 91 H 96 H 99 H Respiratory Rate 20 Blood Pressure 136/73 Pulse Oximetry 94 L 08/19/18 01:00 08/19/18 02:00 08/19/18 03:00 Temperature Pulse Rate 97 H 99 H 93 H Respiratory Rate Blood Pressure Pulse Oximetry 08/19/18 04:00 08/19/18 05:00 08/19/18 06:00 Temperature 96.8 F L Pulse Rate 90 69 76 Respiratory Rate 18 Blood Pressure 128/78 Pulse Oximetry 95 Intake & Output 08/18/18 08/19/18 08/19/18 18:59 06:59 18:59 Intake Total 240 / 240 Output Total 800 / 800 Balance -560 / -560 Weight 117.027 kg 117.02 kg Intake: Oral 240 / 240 Output: Urine 800 / 800 Other: Date of Last Bowel Movement 08/17/18 no tongue swelling currently no stridor. no rash noted no respiratory distress Results - Labs CBC & Chem 7: 08/19/18 07:16 08/19/18 07:16 Laboratory Results - last 24 hr 08/18/18 08/18/18 08/18/18 16:45 16:45 19:48 WBC 12.9 H RBC 4.94 Hgb 14.0 Hct 43.2 MCV 87.4 MCH 28.4 MCHC 32.5 RDW 14.2 Plt Count 292 MPV 7.9 Neut % (Auto) 61.9 Lymph % (Auto) 27.6 Kaufman % (Auto) 7.1 Eos % (Auto) 2.7 Baso % (Auto) 0.7 Neut # (Auto) 8.0 H Lymph # (Auto) 3.5 Kaufman # (Auto) 0.9 Eos # (Auto) 0.3 Baso # (Auto) 0.1 WBC Differential . Differential Comment Auto diff final Sodium 138 Potassium 3.9 Chloride 101 Carbon Dioxide 27.5 Anion Gap 10 BUN 17 Creatinine 0.70 Estimated GFR Greater than 89 POC Glucose 154 H Random Glucose 70 L Calcium 9.3 08/18/18 08/19/18 08/19/18 23:36 05:07 07:16 WBC 14.3 H RBC 4.90 Hgb 13.9 Hct 41.8 MCV 85.2 MCH 28.3 MCHC 33.2 RDW 14.1 Plt Count 304 MPV 7.4 Neut % (Auto) 72.4 H Lymph % (Auto) 20.6 Kaufman % (Auto) 5.9 Eos % (Auto) 0.7 Baso % (Auto) 0.4 Neut # (Auto) 10.4 H Lymph # (Auto) 3.0 Kaufman # (Auto) 0.8 Eos # (Auto) 0.1 Baso # (Auto) 0.1 WBC Differential . Differential Comment Auto diff final Sodium Potassium Chloride Carbon Dioxide Anion Gap BUN Creatinine Estimated GFR POC Glucose 236 H 88 Random Glucose Calcium 08/19/18 08/19/18 07:16 08:19 WBC RBC Hgb Hct MCV MCH MCHC RDW Plt Count MPV Neut % (Auto) Lymph % (Auto) Kaufman % (Auto) Eos % (Auto) Baso % (Auto) Neut # (Auto) Lymph # (Auto) Kaufman # (Auto) Eos # (Auto) Baso # (Auto) WBC Differential Differential Comment Sodium 141 Potassium 4.0 Chloride 102 Carbon Dioxide 28.8 Anion Gap 10 BUN 15 Creatinine 0.77 Estimated GFR Greater than 89 POC Glucose 84 Random Glucose 85 Calcium 9.4 Assessment and Plan - Assessment (1) Angioedema Code(s): T78.3XXA - Angioneurotic edema, initial encounter Status: Acute - Plan 1. recurrent tongue swelling/angioedema since January. 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 Pt w/up so far negative for hereditary angioedema and autoimmune dz's His zak/arb/bb's have been discontinued cont prednisone taper dc home today I will have pt attempt stopping the ccb after the steroid taper and monitor his bp and take if sbp elevates I will call CP on Tuesday to review his case and see if an Allergy/Immunology evaluation at [facility] is warranted. Pt would be eager for that evaluation. (1) Angioedema Qualifiers: Encounter type: initial encounter Qualified Code(s): T78.3XXA - Angioneurotic edema, initial encounter
[2018-08-19] MEDS ORDERED: predniSONE 20 MG Tablet PO ONE (10:00)
[2018-08-19] MEDS: Senna/Docusate Sodium 8.6/50 MG Tablet PO SCH (10:44)
[2018-08-19 10:56] VITALS: BP 155/82; PULSE 82; TEMP 98; O2SAT 100
== END 2018-08-19 11:44 | disposition home or self-care (01) ==
LOC: NEPD 13:38 → NEDA 13:38 → HCIS 18:53
PROVIDERS: ADMIT Hospitalist; ATTEND Hospitalist